=== PATIENT | female | born 1955 | race Asian ===

== ENCOUNTER 2018-10-29 09:07 | Emergency (ER) | payer OTHER ==
[~2018-10-29] VITALS: Ht 160 cm; Wt 68.2 kg
[2018-10-29] MEDS ORDERED: LOSA25TA41 PO (09:13)
[2018-10-29] MEDS ORDERED: GLIP5 PO (09:13)
[2018-10-29] MEDS ORDERED: ACETAMINOPHEN 500 MG TABLET PO ONE (10:15)
[2018-10-29 11:35] VITALS: BP 135/77
== END 2018-10-29 11:35 | disposition home or self-care (01) ==
LOC: EMS 09:08
DX: S52.511A Displaced fracture of right radial styloid process, initial encounter for closed fracture (principal); S52.611A Displaced fracture of right ulna styloid process, initial encounter for closed fracture; S90.31XA Contusion of right foot, initial encounter; E11.9 Type 2 diabetes mellitus without complications; E78.00 Pure hypercholesterolemia, unspecified; I10 Essential (primary) hypertension; W07.XXXA Fall from chair, initial encounter; Y93.89 Activity, other specified; Y92.89 Other specified places as the place of occurrence of the external cause; Y99.8 Other external cause status